=== PATIENT | female | born 1970 | race Caucasian/White ===

== ENCOUNTER 2017-04-05 09:39 | Emergency (ER) | payer BC ==
--- NOTE | 2017-04-05 11:40 | UC ---
Shoulder Pain HPI - HPI Summary HPI Summary: The patient comes in today for: 1. Left shoulder pain: Onset: Initially, 6 months ago, but worse over the last week. Palliative/provocative: Abduction makes it worse. Advil helps. Quality: Ache, soreness, sharp with activities. Region: Left shoulder. Severity: 3/10 at rest, with movement, it can go up to 10/10 Time: Constant. Associated symptoms: Event: She fell about 6 months ago. She was standing along a river[place]. The stones that she was on dislodged and she fell down the riverbank hitting her left shoulder on the stones and a tree. It healed "OK." She did not see anyone at this time for this. She states that the shoulder was never pain free from that point on. Certain activities like carrying things with the left arm ( picking up and abduction) made it worse. However, about 5 days ago, she noticed that the pain got worse. She was not able to brush her teeth last night. The pain is sharp. It is worse with abduction. Internal and external rotation makes it worse. * - History of Current Complaint Chief Complaint: UCUpperExtremity Stated Complaint: LEFT SHOULDER PAIN Time Seen by Provider: 04/05/17 11:13 Hx Obtained From: Patient Hx Last Menstrual Period: 03/14/17 - Allergies/Home Medications Allergies/Adverse Reactions: Allergies Allergy/AdvReac Type Severity Reaction Status Date / Time Amoxicillin Allergy Hives Verified 04/05/17 10:28 dairy products Allergy Intermediate Diarrhea Uncoded 04/05/17 10:27 Home Medications: Home Medications Netti Pot 1 unit INH DAILY PRN 04/05/17 [History] PMH/Surg Hx/FS Hx/Imm Hx Previously Healthy: No - Allergies, Endocrine History Of: Denies: Diabetes, Thyroid Disease, Hyperthyroidism, Hypothyroidism, Dyslipidemia Cardiovascular History Of: Reports: Cardiac Disorders - arrythmia no meds Denies: Hypertension, Pacemaker/ICD, Myocardial Infarction, Congestive Heart Failure, Atrial Fibrillation, Deep Vein Thrombosis, Bleeding Disorders Respiratory History Of: Reports: Asthma - only in summer/ allergies Denies: COPD, Bronchitis, Pneumonia, Pulmonary Embolism GI/ History Of: Denies: Gastroesophageal Reflux, Ulcer, Gastrointestinal Bleed, Gall Bladder Disease, Kidney Stones, Diverticulitis, Renal Disease, Urosepsis Neurological History Of: Denies: TIA, CVA, Dementia, Seizures, Migraine Psychological History Of: Denies: Anxiety, Depression, Bipolar Disorder, Schizophrenia, Post Traumatic Stress Disorder Cancer History Of: Denies: Lung Cancer, Colorectal Cancer, Breast Cancer, Prostate Cancer, Cervical Cancer Other History Of: Negative For: HIV, Hepatitis B, Hepatitis C, Anticoagulant Therapy - Surgical History Surgical History: Yes Surgery Procedure, Year, and Place: IVF to extract egg 2009 - Family History Known Family History: Positive: Cardiac Disease Negative: Hypertension - Social History Occupation: Employed Full-time Alcohol Use: Occasionally Substance Use Type: None Smoking Status (MU): Never Smoked Tobacco Review of Systems Constitutional: Negative Skin: Negative Eyes: Negative ENT: Negative Respiratory: Negative Cardiovascular: Negative Gastrointestinal: Negative Genitourinary: Negative Musculoskeletal: Arthralgia All Other Systems Reviewed And Are Negative: Yes Physical Exam Triage Information Reviewed: Yes Appearance: Well-Appearing, No Pain Distress - At rest., Well-Nourished Vital Signs: Initial Vital Signs Temp 98.5 F 04/05/17 10:17 Pulse 67 04/05/17 10:17 Resp 20 04/05/17 10:17 BP 147/81 04/05/17 10:17 Vital Signs Reviewed: Yes Eyes: Positive: Conjunctiva Clear. Negative: Discharge ENT: Positive: Hearing grossly normal. Negative: Pharyngeal erythema, Nasal congestion, Nasal drainage, TM bulging, TM dull, TM red, Tonsillar swelling, Tonsillar exudate Dental: Negative: Gross Decay/Caries @, Dental Fracture @ Neck: Positive: Supple, Nontender, No Lymphadenopathy. Negative: Nuchal Rigidity Respiratory: Positive: Chest non-tender, Lungs clear, No respiratory distress, No accessory muscle use. Negative: Crackles, Wheezing Cardiovascular: Positive: RRR, No Murmur Abdomen Description: Positive: Nontender, No Organomegaly, Soft. Negative: Distended, Guarding Musculoskeletal: Positive: Strength Intact, Other: - She has decreased abduction in the anterior and lateral plane. There is no marked tenderness to palpation. There is slight tenderness to palpation of the posterior capsule. She had no pain with resisting my external rotation. However, she had pain with resisting my internal rotation. Neurological: Positive: Alert, Muscle Tone Normal Psychological: Positive: Age Appropriate Behavior, Consolable Skin: Negative: rashes, breakdown Diagnostics - Radiology No standard instances Xray Interpretation: No Acute Changes Radiology Interpretation Completed By: Radiologist Shoulder Course/Dx - Course Course Of Treatment: Patient was told that the x-ray was normal suggesting soft tissue injury. I suspected that she may have a rotator cuff injury/ supraspinatus tendonitis. My recommendation was to try NSAIDS and see orthopedics 1-2 weeks later. - Differential Dx/Diagnosis Differential Diagnosis/HQI/PQRI: Arthritis, Rotator Cuff Injury Provider Diagnoses: Left shoulder pain, tendonitis Discharge - Discharge Plan Condition: Stable Disposition: HOME Patient Education Materials: Shoulder Sprain (ED), Rotator Cuff Injury (ED), Rotator Cuff Tendinitis (ED) Referrals: Jayleen Oshea NP [Primary Care Provider] - Vincenzo Stinson MD [Medical Doctor] - 1 Week (Please contact Dr. Stinson's office or the office of your family orthopedic surgeon to be seen in 1-2 weeks. If you get worse while on treatment, please be seen sooner.) Additional Instructions: Avoid activities which cause your shoulder pain.
--- NOTE | 2017-04-05 11:44 | RAD ---
HISTORY: Left shoulder pain after fall COMPARISONS: None VIEWS: 4, Frontal internal rotation, external rotation, outlet, and axillary views of the left shoulder FINDINGS: BONE DENSITY: Normal. BONES: There is no displaced fracture. JOINTS: There is no arthropathy. ALIGNMENT: There is no dislocation. SOFT TISSUES: Unremarkable. OTHER FINDINGS: None. IMPRESSION: NO ACUTE OSSEOUS INJURY. IF SYMPTOMS PERSIST, RECOMMEND REPEAT IMAGING.
[2017-04-05 12:18] VITALS: BP 132/81
== END 2017-04-05 12:33 | disposition home or self-care (01) ==
LOC: UCCORT 09:39
DX: M75.22 Bicipital tendinitis, left shoulder (principal)
CPT/HCPCS: 99212; G0463

== ENCOUNTER 2017-11-26 13:43 | Emergency (ER) | payer BC ==
[2017-11-26 14:00] VITALS: BP 159/92
--- NOTE | 2017-11-26 15:05 | UC ---
Mane Okeefe Tecjoon, scribed for Miguel Ortiz MD on 11/26/17 at 1504 . Epistaxis Nasal HPI - HPI Summary HPI Summary: This patient is a 47 year old female presenting to [facility] with a chief complaint of sinus infection since several weeks ago. The pain is described as throbbing. The pain is rated 10/10 in severity. Symptoms aggravated by nothing. Symptoms alleviated by nothing. 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 Patient additionally reports fever, ear infection, toothache, earache, left-sided face pain. Took doxycycline in September for Sinus infection , which didnt fully clear sx. - History of Current Complaint Chief Complaint: UCHeadache Stated Complaint: sinus CONGESTION, AND EAR ACHE Time Seen by Provider: 11/26/17 14:48 Hx Obtained From: Patient Hx Last Menstrual Period: 11/08/2017 Onset/Duration: Lasting Weeks, Still Present Timing: Constant Severity Currently: Severe Pain Intensity: 10 - throbbing Pain Scale Used: 0-10 Numeric Character: Heavy Aggravating Factor(s): Nothing Alleviating Factor(s): Nothing Associated Signs And Symptoms: Positive: Sinus Pain - Allergies/Home Medications Allergies/Adverse Reactions: Allergies Allergy/AdvReac Type Severity Reaction Status Date / Time Amoxicillin Allergy Hives Verified 09/17/17 11:42 dairy products Allergy Intermediate Diarrhea Uncoded 09/17/17 11:42 PMH/Surg Hx/FS Hx/Imm Hx - Additional Past Medical History Additional PMH: frequent sinus infections Previously Healthy: No Cardiovascular History: Hypertension Other History Of: Negative For: HIV, Hepatitis B, Hepatitis C, Anticoagulant Therapy - Surgical History Surgical History: Yes Surgery Procedure, Year, and Place: IVF to extract egg 2009 - Family History Known Family History: Positive: Cardiac Disease Negative: Hypertension - Social History Alcohol Use: Occasionally Substance Use Type: None Smoking Status (MU): Never Smoked Tobacco - Immunization History Most Recent Influenza Vaccination: none Review of Systems Constitutional: Fever ENT: Dental Pain, Ear Ache, Sinus Pain/Tenderness, Other - left sided face pain All Other Systems Reviewed And Are Negative: Yes Physical Exam Triage Information Reviewed: Yes Vital Signs: Initial Vital Signs Temp 98.7 F 11/26/17 13:52 Pulse 70 11/26/17 13:52 Resp 16 11/26/17 13:52 BP 159/92 11/26/17 13:52 Pulse Ox 98 11/26/17 13:52 - Additional Comments General: well-appearing, mild/moderate pain distress Skin: warm, color reflects adequate perfusion, dry Head: normal Eyes: EOMI, [place] ENT: Tender over left maxillary sinus. Posterior pharyx with mild erythema. Neck: supple, nontender Respiratory: CTA, breath sounds present Cardiovascular: RRR Abdomen: soft, nontender Bowel: present Musculoskeletal: normal, strength/ROM intact Neurological: normal, sensory/motor intact, A&O x3 Psychological: affect/mood appropriate Epistaxis Nasal Course/Dx - Course Course Of Treatment: BP noted and advised to follow up with PCP. Medications reviewed. Allergies noted. - Differential Dx/Diagnosis Provider Diagnoses: SINUSITIS Discharge - Discharge Plan Condition: Stable Disposition: HOME Prescriptions: Clindamycin Cap(NF) [Clindamycin Cap 300 mg Cap(NF)] 300 mg PO Q6H #40 cap HYDROcodone/ACETAMIN 5-325 MG* [[place] 5-325 TAB*] 1 tab PO Q4H PRN #20 tab MDD 6 PRN Reason: Pain Patient Education Materials: Sinusitis (ED) Referrals: Sola Mendoza FIBROUS WALLBOARD INSPECTOR [Primary Care Provider] - Additional Instructions: Your blood pressure was elevated during todays visit; please follow up with your primary care provider within a week for further evaluation. The documentation as recorded by the Mane jin Tecjoon accurately reflects the service I personally performed and the decisions made by me, Miguel Ortiz MD.
== END 2017-11-26 15:11 | disposition home or self-care (01) ==
LOC: UCEAST 13:43
DX: J32.9 Chronic sinusitis, unspecified (principal); H92.09 Otalgia, unspecified ear; K08.89 Other specified disorders of teeth and supporting structures; I10 Essential (primary) hypertension; Z88.8 Allergy status to other drugs, medicaments and biological substances; Z91.011 Allergy to milk products
CPT/HCPCS: 99212; G0463

== ENCOUNTER 2017-12-18 08:23 | Emergency (ER) | payer BC ==
[2017-12-18 08:59] VITALS: BP 142/87
--- NOTE | 2017-12-18 09:16 | UC ---
UC Dental HPI - HPI Summary HPI Summary: broke molar on lower left jaw line, now has abcess, has dentist appointment in 3 days, tylenol effective for pain. - History of Current Complaint Chief Complaint: UCDentalProblem Stated Complaint: DENTAL PAIN Time Seen by Provider: 12/18/17 08:50 Hx Obtained From: Patient Hx Last Menstrual Period: 12/07/17 ?: No Onset/Duration: Sudden Onset, Lasting Days Severity: Moderate Pain Intensity: 6 Related History: Previous Dental Care on Same Tooth - Allergies/Home Medications Allergies/Adverse Reactions: Allergies Allergy/AdvReac Type Severity Reaction Status Date / Time amoxicillin Allergy Hives Verified 12/18/17 08:54 lactose AdvReac Vomiting Verified 12/18/17 08:54 Home Medications: Home Medications Acetaminophen [Acetaminophen ER] 650 mg PO Q8H PRN 12/18/17 [History Confirmed 12/18/17] LoraTADine TAB(NF) [Claritin 10 MG TAB(NF)] 10 mg PO DAILY 12/18/17 [History Confirmed 12/18/17] PMH/Surg Hx/FS Hx/Imm Hx Previously Healthy: Yes Other History Of: Negative For: HIV, Hepatitis B, Hepatitis C, Anticoagulant Therapy - Surgical History Surgical History: Yes Surgery Procedure, Year, and Place: IVF to extract egg 2009 - Family History Known Family History: Positive: Unknown, Cardiac Disease Negative: Hypertension - Social History Alcohol Use: Occasionally Substance Use Type: None Smoking Status (MU): Never Smoked Tobacco - Immunization History Most Recent Influenza Vaccination: none Review of Systems Constitutional: Negative Skin: Negative Eyes: Negative ENT: Dental Pain Respiratory: Negative Cardiovascular: Negative Gastrointestinal: Negative Genitourinary: Negative Motor: Negative Neurovascular: Negative Musculoskeletal: Negative Neurological: Negative Psychological: Negative Is Patient Immunocompromised?: No All Other Systems Reviewed And Are Negative: Yes Physical Exam Triage Information Reviewed: Yes Appearance: Well-Appearing, Well-Nourished, Pain Distress Vital Signs: Initial Vital Signs Temp 98.2 F 12/18/17 08:51 Pulse 72 12/18/17 08:51 Resp 16 12/18/17 08:51 BP 142/87 12/18/17 08:51 Pulse Ox 100 12/18/17 08:51 Vital Signs Reviewed: Yes Eye Exam: Normal ENT: Positive: Pharynx normal, TMs normal Dental Exam: Normal Dental: Positive: Gross Decay/Caries @, Dental Fracture @, Abscess @ - under affected tooth Neck exam: Normal Neck: Positive: Supple, Nontender, No Lymphadenopathy Respiratory Exam: Normal Respiratory: Positive: Chest non-tender, Lungs clear, Normal breath sounds Cardiovascular Exam: Normal Cardiovascular: Positive: RRR, No Murmur, Pulses Normal Abdominal Exam: Normal Abdomen Description: Positive: Nontender, No Organomegaly, Soft Bowel Sounds: Positive: Present Musculoskeletal Exam: Normal Musculoskeletal: Positive: Strength Intact, ROM Intact, No Edema Neurological Exam: Normal Neurological: Positive: Alert, Muscle Tone Normal Psychological Exam: Normal Skin Exam: Normal Dental Complaint Course/Dx - Course Course Of Treatment: hx obtained, exam performed ,meds reviewed, treated for abscess - Differential Dx/Diagnosis Differential Diagnosis/Dx: Dental Abscess, Dental Caries, Pharyngitis, TMJ Syndrome Provider Diagnoses: dental fracture and abscess Discharge - Discharge Plan Condition: Stable Disposition: HOME Prescriptions: Clindamycin Cap(NF) [Clindamycin Cap 300 mg Cap(NF)] 300 mg PO TID #21 cap Patient Education Materials: Dental Abscess (ED) Referrals: Sola Mendoza NP [Primary Care Provider] - Additional Instructions: 1. use the medication as prescribed. 2 continue with mouth rinses and tylenol for pain, 3. Follow up with the dentist.
== END 2017-12-18 09:21 | disposition home or self-care (01) ==
LOC: UCCORT 08:23
DX: S02.5XXA Fracture of tooth (traumatic), initial encounter for closed fracture (principal); K04.7 Periapical abscess without sinus; Z72.89 Other problems related to lifestyle
CPT/HCPCS: 99212; G0463

== ENCOUNTER 2018-02-05 14:29 | Emergency (ER) | payer BC | END 2018-02-05 15:57 | disposition left against medical advice (07) | LOC: UCEAST 14:29 | DX: J34.9 Unspecified disorder of nose and nasal sinuses (principal); Z53.21 Procedure and treatment not carried out due to patient leaving prior to being seen by health care provider ==

== ENCOUNTER 2018-02-10 09:34 | Emergency (ER) | payer BC ==
[2018-02-10 10:51] VITALS: BP 127/74
--- NOTE | 2018-02-10 11:49 | RAD ---
HISTORY: Right foot pain and injury COMPARISONS: None VIEWS: 3, Frontal, lateral, and oblique views of the right foot FINDINGS: BONE DENSITY: Normal. BONES: There is a nondisplaced fracture of the proximal fifth metatarsal, approximately 2 cm from the articular surface. . JOINTS: There is no arthropathy. ALIGNMENT: There is no dislocation. SOFT TISSUES: Unremarkable. OTHER FINDINGS: None. IMPRESSION: NONDISPLACED FRACTURE OF THE PROXIMAL FIFTH METATARSAL
[2018-02-10] MEDS ORDERED: Ibuprofen TAB* 400 MG PO ONE (11:56)
--- NOTE | 2018-02-10 12:02 | UC ---
Lower Extremity/Ankle HPI - HPI Summary HPI Summary: 47-year-old presents to urgent care with complaints of right foot pain after an injury that she sustained around 9:30 AM today. States she was running when she stepped into a hole. States pain is worsened with weightbearing or walking. Pain is on the medial side of foot. No ankle or lower leg pain. 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 Also complains her sinus infection that has not been improving after 5 days of doxycycline. Patient has chronic sinusitis due to anatomy and she is with eustachian tube. Has also been using over-the- counter measures. No other complaints at this time. No past Medical history. Not taking any medication for pain. - History of Current Complaint Chief Complaint: UCLowerExtremity Stated Complaint: RT FOOT INJURY Time Seen by Provider: 02/10/18 11:04 Hx Obtained From: Patient Hx Last Menstrual Period: 01/18/18 Onset/Duration: Sudden Onset Severity Initially: Mild Severity Currently: Mild Pain Intensity: 1 Pain Scale Used: 0-10 Numeric - Worse when bearing weight Aggravating Factor(s): Standing, Ambulation Alleviating Factor(s): Rest Able to Bear Weight: Yes - however increased pain Feet (Multiple View): 1 - Pain - Allergies/Home Medications Allergies/Adverse Reactions: Allergies Allergy/AdvReac Type Severity Reaction Status Date / Time amoxicillin Allergy Hives Verified 02/10/18 10:51 lactose AdvReac Vomiting Verified 02/10/18 10:51 Home Medications: Home Medications Advil Sinus 1 tab PO Q4H PRN 02/10/18 [History] DOXYcycline CAP(*) [DOXYcycline 100MG CAP(*)] 100 mg PO BID 02/10/18 [History Confirmed 02/10/18] PMH/Surg Hx/FS Hx/Imm Hx - Additional Past Medical History Additional PMH: Denies past medical history no high blood pressure or diabetes Other History Of: Negative For: HIV, Hepatitis B, Hepatitis C, Anticoagulant Therapy - Surgical History Surgical History: Yes Surgery Procedure, Year, and Place: IVF to extract egg 2009 - Family History Known Family History: Positive: Unknown, Cardiac Disease Negative: Hypertension - Social History Alcohol Use: Occasionally Substance Use Type: None Smoking Status (MU): Never Smoked Tobacco - Immunization History Most Recent Influenza Vaccination: none Review of Systems Constitutional: Negative Respiratory: Negative Cardiovascular: Negative Musculoskeletal: Arthralgia, Decreased ROM - Right foot, Myalgia Neurological: Negative All Other Systems Reviewed And Are Negative: Yes Physical Exam Triage Information Reviewed: Yes Appearance: Well-Appearing, Well-Nourished, Pain Distress - Mild, worse with walking and bearing weight Vital Signs: Initial Vital Signs Temp 98.5 F 02/10/18 10:40 Pulse 74 02/10/18 10:40 Resp 18 02/10/18 10:40 BP 127/74 02/10/18 10:40 Pulse Ox 100 02/10/18 10:40 Vital Signs Reviewed: Yes Neck: Positive: Supple Respiratory: Positive: Chest non-tender, Lungs clear, Normal breath sounds, No respiratory distress Cardiovascular: Positive: RRR, No Murmur, Pulses Normal - 2+ pedal, Brisk Capillary Refill Musculoskeletal: Positive: No Edema, Strength Limited @ - Right foot, ROM Limited @ - With right toes due to pain, Other: - Tender to palpation over fifth metatarsal of right foot, no ecchymosis, edema, erythema, obvious deformity noted Neurological Exam: Normal Neurological: Positive: Alert Psychological Exam: Normal Skin Exam: Normal Diagnostics - Radiology right foot Xray Interpretation: Positive (See Comments) - NONDISPLACED FRACTURE OF THE PROXIMAL FIFTH METATARSAL Radiology Interpretation Completed By: Radiologist Lower Extremity Course/Dx - Course Course Of Treatment: Given ibuprofen for the urgent care. X-ray obtained and showed a nondisplaced fracture of fifth metatarsal. Continue ibuprofen along with rice at home. Applied a postop shoe and crutches. Do not bear weight until seen by orthopedics. Switched doxycycline to clindamycin for sinus infection. Continue Flonase Mucinex saline rinses and hot showers. Aware worsening signs and symptoms to watch out for. Follow-up with PCP to ensure improvement as well as Ortho 4 days for further treatment and evaluation. All questions answered and no other concerns at this time. - Differential Dx/Diagnosis Differential Diagnosis/HQI/PQRI: Contusion, Dislocation, Fracture (Closed), Sprain, Strain, Other - Sinusitis Provider Diagnoses: right fifth metatarsal fracture, sinusitis Discharge - Sign-Out/Discharge Documenting (check all that apply): Discharge - Discharge Plan Condition: Good Disposition: HOME Patient Education Materials: Foot Fracture in Adults (ED), Sinusitis (ED), Warm Compress or Soak (ED) Referrals: Sola Mendoza WHARF TENDER [Primary Care Provider] - Additional Instructions: For foot fracture: Ibuprofen 600mg every 6 hours as needed for pain, take with food. Rest, ice and elevate. Wear foot brace and use crutches, do not bear weight. Follow up with Orthopedics, call to make an appointment for further evaluation and treatment. For the sinusitis: Discontinue doxycycline, take 7 day course of clindamycin. Recommend taking probiotic pill in between doses. Discontinue afrin and use flonase nasal spray once at bedtime. Recommend mucinex, take one pill in the morning for the next 7 days. melatonin OR z-quil for sleep-aid. Continue nazanin pot and normal saline. Salt water swishes, hot showers, humidifier at bedtime if available. Any new or worsening symptoms please seek medical attention promptly. Follow up with PCP for recheck. - Billing Disposition and Condition Condition: GOOD Disposition: HOME
== END 2018-02-10 12:27 | disposition home or self-care (01) ==
LOC: UCCORT 09:34
DX: S92.354A Nondisplaced fracture of fifth metatarsal bone, right foot, initial encounter for closed fracture (principal); W18.42XA Slipping, tripping and stumbling without falling due to stepping into hole or opening, initial encounter; Y93.02 Activity, running; Y92.9 Unspecified place or not applicable; J32.9 Chronic sinusitis, unspecified; Z88.3 Allergy status to other anti-infective agents
CPT/HCPCS: 99213; A9270-GY; G0463

== ENCOUNTER 2018-05-12 11:45 | Emergency (ER) | payer BC ==
--- NOTE | 2018-05-12 12:36 | UC ---
Throat Pain/Nasal Franky HPI - HPI Summary HPI Summary: 47 year old with sinus complaint. SINUS CONGESTION, PRESSURE AND PAIN IN JAW/ TEETH LEFT SIDE X2 WEEKS URINARY SYMPTOMS OF BURNING ON URINATION, FREQUENCY, URGENCY AND LOW BACK PAIN X3-4 DAYS. She has had recurrent sinusitis and goes to ENT and feels that she has one right now and states that only clinda or cipro will work for the sinus infections. [ End ] - History of Current Complaint Stated Complaint: SINUS COMPLAINT, URINARY Time Seen by Provider: 05/12/18 12:34 Hx Obtained From: Patient Hx Last Menstrual Period: 01/18/18 Onset/Duration: Gradual Onset Cough: Productive - Allergies/Home Medications Allergies/Adverse Reactions: Allergies Allergy/AdvReac Type Severity Reaction Status Date / Time amoxicillin Allergy Hives Verified 02/10/18 10:51 lactose AdvReac Vomiting Verified 02/10/18 10:51 Home Medications: Home Medications Ibuprofen 600 mg PO Q8H 05/12/18 [History Confirmed 05/12/18] guaiFENesin [Mucinex] 600 mg PO DAILY 05/12/18 [History Confirmed 05/12/18] PMH/Surg Hx/FS Hx/Imm Hx Previously Healthy: Yes Other History Of: Negative For: HIV, Hepatitis B, Hepatitis C, Anticoagulant Therapy - Surgical History Surgical History: Yes Surgery Procedure, Year, and Place: IVF to extract egg 2009 - Family History Known Family History: Positive: Unknown, Cardiac Disease Negative: Hypertension - Social History Occupation: Employed Full-time Lives: With Family Alcohol Use: Occasionally Substance Use Type: None Smoking Status (MU): Never Smoked Tobacco - Immunization History Most Recent Influenza Vaccination: none Review of Systems Constitutional: Fatigue ENT: Sore Throat, Ear Ache, Nasal Discharge, Sinus Congestion, Sinus Pain/ Tenderness Respiratory: Cough Genitourinary: Dysuria, Frequency, Urgency Is Patient Immunocompromised?: No All Other Systems Reviewed And Are Negative: Yes Physical Exam Triage Information Reviewed: Yes Appearance: Well-Appearing, No Pain Distress, Well-Nourished Vital Signs Reviewed: Yes Eye Exam: Normal ENT Exam: Normal ENT: Positive: Nasal congestion, Sinus tenderness Dental Exam: Normal Neck exam: Normal Neck: Positive: 1 Respiratory Exam: Normal Cardiovascular Exam: Normal Abdomen Description: Positive: Nontender, Soft. Negative: CVA Tenderness (R), CVA Tenderness (L), Distended, Guarding Musculoskeletal Exam: Normal Neurological Exam: Normal Psychological Exam: Normal Skin Exam: Normal Throat Pain/Nasal Course/Dx - Course Course Of Treatment: treat for sinusitis with concurrent UTI with cipro as per pt Cipro works for sinuses and should also cover UTI . She is aware of risks of this med and aware of SE . she is requesting 10 days of 500 mg at this time - Differential Dx/Diagnosis Differential Diagnosis/HQI/PQRI: Peritonsillar Abscess, Pharyngitis, Sinusitis, URI Provider Diagnoses: Sinusitis. UTI. Hematuria Discharge - Sign-Out/Discharge Documenting (check all that apply): Discharge/Admit/Transfer - Discharge Plan Condition: Good Disposition: HOME Prescriptions: Ciprofloxacin TAB* [Cipro 500 MG TAB*] 500 mg PO BID #20 tab Patient Education Materials: Urinary Tract Infection in Women (DC), Sinusitis ( ED), Hematuria (ED) Referrals: Sola Mendoza, MDM SR [Primary Care Provider] - 4 Days Additional Instructions: Please follow up with recheck of your urine to ensure no infection or blood in the urine in 1-2 weeks with your PCP - Billing Disposition and Condition Condition: GOOD Disposition: Home
--- OUTSIDE RECORDS SUMMARY | 2018-05-12 12:39 | XMS REPORT ---
:1970 External Reference #:[id number] Author Organization [facility] Address [address] [place] [address] Phone [phone] Care Team Providers Name Role Phone Sola Mendoza NP Primary Care Physician Unavailable Payers Type Date Identification Numbers Payment Provider Subscriber Commercial Policy Number: [id number] [employer] Nessa Ignacio PayID: [id number] [address] [address] [place] [address] Problems Date Description Provider Status Onset: 02/15/2018 Closed fracture of metatarsal bone Fawad Victoria MD Active Family History Date Family Member(s) Problem(s) Comments General Diabetes Social History Type Date Description Comments Marital Status Single Lives With Roommate Occupation Currently Working ETOH Use Drinks 5 Alcoholic Beverages Per Week Smoking Patient has never smoked Exercise Type/Frequency Exercises regularly Allergies, Adverse Reactions, Alerts Date Description Reaction Status Severity Comments 02/15/2018 Amoxicillin active 02/15/2018 Lactose (Allergy) active Medications Medication Date Status Form Strength Qnty SIG Indications Ordering Provider Knee Scooter Active 1units 3 months Fawad Victoria MD Ibuprofen Active Tablets 800mg 90tabs by mouth Caio 014 three Doe, times a M.D. day as needed Teresita-D 24 Active Unknown Hour 000 Doxycycline Active 100mg Unknown Hyclate 000 Vital Signs Date Vital Result Comment 04/26/2018 Height 62 inches 5'2" Weight 168.00 lb Heart Rate 82 /min Respiratory Rate 18 /min Pain Level 0 BMI (Body Mass Index) 30.7 kg/m2 03/29/2018 Height 62 inches 5'2" Weight 165.00 lb Heart Rate 72 /min Respiratory Rate 17 /min Pain Level 0 BMI (Body Mass Index) 30.2 kg/m2 02/15/2018 Height 62 inches 5'2" Weight 165.00 lb BP Systolic 124 mmHg BP Diastolic 82 mmHg Respiratory Rate 17 /min Body Temperature 97.4 F Pain Level 0 BMI (Body Mass Index) 30.2 kg/m2 08/31/2014 Height 62 inches 5'2" Heart Rate 75 /min BP Systolic 127 mmHg BP Diastolic 80 mmHg Results Description No Information Procedures Date CPT Code Description Status 08/31/2014 45587 Rad Exam; Foot Comp Completed 08/23/2013 99574 Holter Monitor Review (24 hr)dr review & interp only Completed Encounters Type Date Location Provider CPT E/M Dx Office Visit 04/26/2018 [facility] [address] S92.354A 10:00a [facility] Office Visit 03/29/2018 [place] [address] S92.354A 10:00a [facility] Office Visit 02/15/2018 [place] [address] [id number] 8:00a [facility] Office Visit 08/31/2014 [facility] [address] [id number] 2:00p [facility]Elaine Blake Plan of Care Future Appointment(s):07/27/2018 1:15 pm - Fawad [facility]04/26/2018 - Fawad Victoria [id number] Nondisp fx of fifth metatarsal bone, right foot, initNew Xrays:Foot Right 3+ VWSFollow up:Follow Up : 3 months
[2018-05-12 12:50] VITALS: BP 125/90
--- NOTE | 2018-05-15 07:10 | UC ---
- Progress Note Progress Note: + E. coli Pt on cipro + sensitive no change 05/15/2018 7:10 Discharge - Sign-Out/Discharge Documenting (check all that apply): Post-Discharge Follow Up - Discharge Plan Condition: Good Disposition: HOME Prescriptions: Ciprofloxacin TAB* [Cipro 500 MG TAB*] 500 mg PO BID #20 tab Patient Education Materials: Urinary Tract Infection in Women (DC), Sinusitis ( ED), Hematuria (ED) Referrals: Sola Mendoza [employer] [Primary Care Provider] - 4 Days Additional Instructions: Please follow up with recheck of your urine to ensure no infection or blood in the urine in 1-2 weeks with your PCP - Billing Disposition and Condition Condition: GOOD Disposition: Home
== END 2018-05-12 13:16 | disposition home or self-care (01) ==
LOC: UCCORT 11:45
DX: J32.9 Chronic sinusitis, unspecified (principal); N39.0 Urinary tract infection, site not specified; B96.20 Unspecified Escherichia coli [E. coli] as the cause of diseases classified elsewhere; R31.9 Hematuria, unspecified; Z88.0 Allergy status to penicillin
CPT/HCPCS: 81003; 87077; 87086; 87186; 99212; G0463

== ENCOUNTER 2018-06-27 14:48 | Emergency (ER) | payer BC ==
[2018-06-27 15:08] VITALS: BP 130/76
--- NOTE | 2018-06-27 15:11 | UC ---
Skin Complaint HPI - HPI Summary HPI Summary: The pt is a 48 y/o female presenting to for staple and suture removal s/p a dog attack 8 days ago. She was bitten while breaking up a dog fight by a dog she had adopted from the [facility] . She was given Amoxicillin which upset her stomach and the prescription will last for the next two days. She reports taking Augmentin to her relief. She is concerned about a slow-healing wound on her R palm and pain at night. The pain is alleviated by applying ice and aggravated by impact. The provider removed 7 stitches and 2 daniel from the RE and and 2 daniel from the LE during today's visit. This is scribe Brittney Hernandez documenting for attending Dr. Miguel Ortiz. I, Dr. Miguel Ortiz personally performed the services described in this documentation as scribed in my presence and it is both accurate and complete. - History of Current Complaint Time Seen by Provider: 06/27/18 15:02 Stated Complaint: STAPLE REMOVAL Hx Obtained From: Patient Hx Last Menstrual Period: 01/18/18 Onset/Duration: Lasting Days - 8 days ago, Still Present Skin Exposure Onset/Duration: Days Ago Location: Hand (Right), Hand (Left) Aggravating Factor(s): Other - Impact Alleviating Factor(s): Other - Appllication of ice Related History: Other: - Dog Attack - Allergy/Home Medications Allergies/Adverse Reactions: Allergies Allergy/AdvReac Type Severity Reaction Status Date / Time amoxicillin Allergy Hives Verified 06/27/18 15:09 lactose AdvReac Vomiting Verified 06/27/18 15:09 Home Medications: Home Medications Amoxicillin/Potassium Clav [Amox-Clav 250-125 mg Tablet] 1 tab PO BID 06/27/18 [ History Confirmed 06/27/18] Review of Systems Constitutional: Negative - Fever Skin: Other - Positive:Bilateral lacerations with sutures and daniel Gastrointestinal: Other - Positive: Stomach upset due to Amoxcillin Musculoskeletal: Other: - Positive: Bilateral UE pain All Other Systems Reviewed And Are Negative: Yes PMH/Surg Hx/FS Hx/Imm Hx Previously Healthy: No - No known PMHx of HTN or AL Endocrine History: Diabetes - Currently prediabetic Cardiovascular History: Cardiac Disease - Positive: Arythmia (no meds) Respiratory History: Asthma Other History Of: Negative For: HIV, Hepatitis B, Hepatitis C, Anticoagulant Therapy - Surgical History Surgical History: Yes Surgery Procedure, Year, and Place: IVF to extract egg 2009 - Family History Known Family History: Positive: Cardiac Disease Negative: Hypertension - Social History Occupation: Employed Full-time Lives: Alone Alcohol Use: Occasionally Substance Use Type: None Smoking Status (MU): Never Smoked Tobacco - Immunization History Most Recent Influenza Vaccination: none Physical Exam - Summary Physical Exam Summary: General: well-appearing, no pain distress Skin: warm, color reflects adequate perfusion, dry; Bilateral lacerations on the UE ; Lacerations on the L forearm are healed with no drainage; R palm has a scab with no erythema or drainage; The edges of the R forearm lacerations are loosely approximated with no drainage, sterile gauzes were placed over those. 7 stitches and 2 daniel removed from the RE and and 2 daniel from the LE during the visit . Head: normal Eyes: EOMI, [place] ENT: normal Neck: supple, nontender Respiratory: CTA, breath sounds present Cardiovascular: RRR Abdomen: soft, nontender Bowel: present Musculoskeletal: normal, strength/ROM intact Neurological: sensory/motor intact, A&O x3 Psychological: affect/mood appropriate Triage Information Reviewed: Yes Vital Signs Reviewed: Yes Course/Dx - Course Course Of Treatment: Sutures and daniel removed. No sign of infection. Follow -up PMD. Recheck sooner if worse. - Diagnoses Provider Diagnoses: dog bite. staple and suture removal Discharge - Sign-Out/Discharge Documenting (check all that apply): Patient Departure - Discharge - Discharge Plan Condition: Stable Disposition: HOME Prescriptions: Amoxicillin/Clavulanate TAB* [Augmentin TAB 875*] 875 mg PO BID #20 tab Patient Education Materials: Animal Bite (ED), Staple Care (ED), Stitches Removal (ED) Referrals: Sola Mendoza NP [Primary Care Provider] - Additional Instructions: FOLLOW UP WITH YOUR DOCTOR IF NOT COMPLETELY IMPROVED. GET RECHECKED FOR ANY WORSENING OF YOUR CONDITION OR QUESTIONS OR CONCERNS. - Billing Disposition and Condition Condition: STABLE Disposition: Home
== END 2018-06-27 15:35 | disposition home or self-care (01) ==
LOC: UCEAST 14:48
DX: S51.812D Laceration without foreign body of left forearm, subsequent encounter (principal); S51.811D Laceration without foreign body of right forearm, subsequent encounter; W54.0XXD Bitten by dog, subsequent encounter; Z88.0 Allergy status to penicillin; Z82.49 Family history of ischemic heart disease and other diseases of the circulatory system
CPT/HCPCS: 99212; G0463

== ENCOUNTER 2018-10-21 09:30 | Emergency (ER) | payer BC ==
[2018-10-21 09:53] VITALS: BP 126/81
--- NOTE | 2018-10-21 10:15 | UC ---
Dental HPI - HPI Summary HPI Summary: dental pain x 2 days broken left lower back molar 2 days ago has been very painful 8 out of 10 , radiation to left jaw increase pain with cold and chewing also c/o sinus pain and pressure x 10 days nasal congestion , pnd , no fever, no chills - History of Current Complaint Chief Complaint: UCDentalProblem Stated Complaint: SINUS/DENTAL CONCERN Time Seen by Provider: 10/21/18 10:03 Hx Obtained From: Patient Hx Last Menstrual Period: 10/14/18 ?: No Onset/Duration: Sudden Onset, Lasting Days - 2, Still Present Severity: Severe Pain Intensity: 6 Aggravating Factor(s): Cold, Chewing Dental: 1 - broken tooth - Allergies/Home Medications Allergies/Adverse Reactions: Allergies Allergy/AdvReac Type Severity Reaction Status Date / Time amoxicillin Allergy Hives Verified 06/27/18 15:09 lactose AdvReac Vomiting Verified 06/27/18 15:09 Home Medications: Home Medications Acetaminophen [Acetaminophen Extra Strength] 500 mg PO Q4HR PRN 10/21/18 [ History Confirmed 10/21/18] Levocetirizine Dihydrochloride [Xyzal Allergy 24Hr] 5 mg PO QPM 10/21/18 [ History Confirmed 10/21/18] PMH/Surg Hx/FS Hx/Imm Hx Respiratory History: Asthma Other History Of: Negative For: HIV, Hepatitis B, Hepatitis C, Anticoagulant Therapy - Surgical History Surgical History: Yes Surgery Procedure, Year, and Place: IVF to extract egg 2009 - Family History Known Family History: Positive: Cardiac Disease Negative: Hypertension - Social History Alcohol Use: Occasionally Substance Use Type: None Smoking Status (MU): Never Smoked Tobacco - Immunization History Most Recent Influenza Vaccination: none Review of Systems All Other Systems Reviewed And Are Negative: Yes Constitutional: Positive: Negative Skin: Positive: Negative Eyes: Positive: Negative ENT: Positive: Nasal Discharge, Sinus Congestion, Sinus Pain/Tenderness Respiratory: Positive: Negative Cardiovascular: Positive: Negative Gastrointestinal: Positive: Negative Is Patient Immunocompromised?: No Physical Exam Triage Information Reviewed: Yes Appearance: Well-Appearing, No Pain Distress, Well-Nourished Vital Signs: Initial Vital Signs Temp 97.7 F 10/21/18 09:49 Pulse 76 10/21/18 09:49 Resp 12 10/21/18 09:49 BP 126/81 10/21/18 09:49 Pulse Ox 100 10/21/18 09:49 Vital Signs Reviewed: Yes Eye Exam: Normal Eyes: Positive: Conjunctiva Clear ENT: Positive: Normal ENT inspection, Hearing grossly normal, Pharynx normal, TMs normal, Sinus tenderness, Uvula midline. Negative: Tonsillar swelling, Tonsillar exudate Dental: Positive: Dental Fracture @ - "19 Neck: Positive: Supple, Nontender, No Lymphadenopathy Respiratory: Positive: Chest non-tender, Lungs clear, Normal breath sounds Cardiovascular: Positive: RRR, No Murmur, Pulses Normal Dental Complaint Course/Dx - Differential Dx/Diagnosis Provider Diagnosis: Fracture, tooth, Sinusitis Discharge - Sign-Out/Discharge Documenting (check all that apply): Patient Departure All imaging exams completed and their final reports reviewed: No Studies - Discharge Plan Condition: Stable Disposition: HOME Prescriptions: Amoxicillin/Clavulanate TAB* [Augmentin TAB 875*] 875 mg PO BID #20 tab HYDROcodone/ACETAMIN 5-325 MG* [Marlin 5-325 TAB*] 1 tab PO Q6H PRN #15 tab MDD 4 tabs PRN Reason: Pain Patient Education Materials: Sinusitis (ED), Toothache (ED) Referrals: Sola Mendoza [employer] [Primary Care Provider] - 7 Days - Billing Disposition and Condition Condition: STABLE Disposition: Home
== END 2018-10-21 10:19 | disposition home or self-care (01) ==
LOC: UCCORT 09:30
DX: S02.5XXA Fracture of tooth (traumatic), initial encounter for closed fracture (principal); X58.XXXA Exposure to other specified factors, initial encounter; Y92.9 Unspecified place or not applicable; J32.9 Chronic sinusitis, unspecified
CPT/HCPCS: 99212; G0463

== ENCOUNTER 2019-01-18 09:09 | Emergency (ER) | payer BC ==
[2019-01-18 10:32] VITALS: BP 137/79
--- NOTE | 2019-01-18 10:47 | UC ---
Throat Pain/Nasal Franky HPI - HPI Summary HPI Summary: Pt presents with c/o sinus pressure and pain that began a "few days ago". Pt has known hx of chronic sinusitis. - History of Current Complaint Chief Complaint: UCRespiratory Stated Complaint: SINUS COMPLAINT Time Seen by Provider: 01/18/19 10:38 Hx Obtained From: Patient Hx Last Menstrual Period: 01/07 ?: No Onset/Duration: Gradual Onset, Lasting Days, Still Present Severity: Moderate Pain Intensity: 4 Cough: None Associated Signs & Symptoms: Positive: Sinus Discomfort, Nasal Discharge - Epiglottits Risk Factors Epiglottis Risk Factors: Negative - Allergies/Home Medications Allergies/Adverse Reactions: Allergies Allergy/AdvReac Type Severity Reaction Status Date / Time amoxicillin Allergy Hives Verified 01/18/19 10:22 lactose AdvReac Vomiting Verified 01/18/19 10:22 Home Medications: Home Medications Ibuprofen TAB* [Motrin TAB* 400 MG] 400 mg PO Q4H PRN 01/18/19 [History Confirmed 01/18/19] PMH/Surg Hx/FS Hx/Imm Hx Previously Healthy: Yes Other History Of: Negative For: HIV, Hepatitis B, Hepatitis C, Anticoagulant Therapy - Surgical History Surgical History: Yes Surgery Procedure, Year, and Place: IVF to extract egg 2009 - Family History Known Family History: Positive: Cardiac Disease Negative: Hypertension - Social History Occupation: Employed Full-time Lives: With Family Alcohol Use: Occasionally Substance Use Type: None Smoking Status (MU): Never Smoked Tobacco Have You Smoked in the Last Year: No - Immunization History Most Recent Influenza Vaccination: none Review of Systems All Other Systems Reviewed And Are Negative: Yes Constitutional: Positive: Fever - subjective, Chills, Fatigue Skin: Positive: Negative Eyes: Positive: Negative ENT: Positive: Nasal Discharge, Sinus Congestion, Sinus Pain/Tenderness Respiratory: Positive: Negative Cardiovascular: Positive: Negative Gastrointestinal: Positive: Negative Genitourinary: Positive: Negative Motor: Positive: Negative Neurovascular: Positive: Negative Musculoskeletal: Positive: Negative Neurological: Positive: Headache Psychological: Positive: Negative Is Patient Immunocompromised?: No Physical Exam Triage Information Reviewed: Yes Appearance: Ill-Appearing Vital Signs: Initial Vital Signs Temp 98.3 F 01/18/19 10:27 Pulse 74 01/18/19 10:27 Resp 18 01/18/19 10:27 BP 137/79 01/18/19 10:27 Pulse Ox 100 03/06/19 10:27 Vital Signs Reviewed: Yes Eye Exam: Normal ENT Exam: Other ENT: Positive: Nasal congestion, Sinus tenderness Dental Exam: Normal Neck exam: Normal Respiratory Exam: Normal Cardiovascular Exam: Normal Musculoskeletal Exam: Normal Neurological Exam: Normal Psychological Exam: Normal Skin Exam: Normal Throat Pain/Nasal Course/Dx - Differential Dx/Diagnosis Differential Diagnosis/HQI/PQRI: Sinusitis, URI Provider Diagnosis: Sinusitis Discharge - Sign-Out/Discharge Documenting (check all that apply): Patient Departure All imaging exams completed and their final reports reviewed: No Studies - Discharge Plan Condition: Stable Disposition: HOME Prescriptions: DOXYcycline CAP(*) [DOXYcycline 100MG CAP(*)] 100 mg PO Q12H #20 cap Patient Education Materials: Sinusitis (ED) Referrals: Sola Mendoza [employer]OLD [facility]ER [Primary Care Provider] - If Needed - Billing Disposition and Condition Condition: STABLE Disposition: Home
== END 2019-01-18 10:57 | disposition home or self-care (01) ==
LOC: UCCORT 09:09
DX: J32.9 Chronic sinusitis, unspecified (principal); Z88.0 Allergy status to penicillin; Z91.011 Allergy to milk products
CPT/HCPCS: 99212; G0463

== ENCOUNTER 2019-01-29 10:09 | Emergency (ER) | payer BC ==
[2019-01-29 10:48] VITALS: BP 141/87
[2019-01-29] MEDS ORDERED: Tetan/Diph/Pertus SYR(Tdap)* 0.5 ML SYR(BOOSTRIX) use SYR IM ONE (10:57)
--- NOTE | 2019-01-29 11:02 | UC ---
Bite Injury/Animal HPI - HPI Summary HPI Summary: 48-year-old female presents with dog bite to her left forearm. States she is playing with her dog this morning when his teeth accidentally got caught in a small tear in her jacket, the dog panicked and bit down on her arm, and the patient attempted to pull her arm from the dog's mouth. Reports multiple puncture wounds to the anterior and posterior aspect of her left forearm including 2 deep lacerations. States she tried to simply dressed the wounds at home but the lacerations were continuing to bleed therefore she sought care here. Bleeding was controlled upon arrival. Denies any numbness tingling, loss of range of motion, or weakness of the arm. Tetanus status is unknown. - History of Current Complaint Chief Complaint: Chavez Stated Complaint: DOG BITE Time Seen by Provider: 01/29/19 10:52 Hx Obtained From: Patient Hx Last Menstrual Period: 01/07 Pain Intensity: 1 - Allergies/Home Medications Allergies/Adverse Reactions: Allergies Allergy/AdvReac Type Severity Reaction Status Date / Time amoxicillin Allergy Hives Verified 01/18/19 10:22 lactose AdvReac Vomiting Verified 01/18/19 10:22 PMH/Surg Hx/FS Hx/Imm Hx Previously Healthy: Yes - Denies significant PMH Other History Of: Negative For: HIV, Hepatitis B, Hepatitis C, Anticoagulant Therapy - Surgical History Surgical History: Yes Surgery Procedure, Year, and Place: IVF to extract egg 2009 - Family History Known Family History: Positive: Cardiac Disease - Social History Occupation: Employed Full-time Lives: Alone Alcohol Use: Occasionally Substance Use Type: None Smoking Status (MU): Never Smoked Tobacco Have You Smoked in the Last Year: No - Immunization History Most Recent Influenza Vaccination: none Review of Systems All Other Systems Reviewed And Are Negative: Yes Constitutional: Negative: Fever, Chills Skin: Positive: Other - See HPI Respiratory: Positive: Negative Cardiovascular: Positive: Negative Gastrointestinal: Positive: Negative Motor: Negative: Weakness Neurovascular: Negative: Decreased Sensation Musculoskeletal: Negative: Arthralgia, Decreased ROM Neurological: Positive: Negative Is Patient Immunocompromised?: No Physical Exam - Summary Physical Exam Summary: GENERAL APPEARANCE: Well developed, obese, alert and cooperative, and appears to be in no acute distress. CARDIAC: Normal S1 and S2. No S3, S4 or murmurs. Rhythm is regular. There is no peripheral edema, cyanosis or pallor. Extremities are warm and well perfused. Capillary refill is less than 2 seconds. Peripheral pulses intact. LUNGS: Clear to auscultation without rales, rhonchi, wheezing or diminished breath sounds. ABDOMEN: Positive bowel sounds. Soft, nondistended, nontender. No guarding or rebound. No masses or hepatosplenomegally. MUSKULOSKELETAL: ROM intact to all extremities. No joint erythema or tenderness. Normal muscular development. Normal gait. NEUROLOGICAL: Strength and sensation symmetric and intact throughout. SKIN: Multiple puncture wounds to the anterior and posterior left forearm with ecchymosis and mild edema of the surrounding tissues. Laceration #1: 1.2 x 1.2 L-shaped deep puncture wound that extends through the subdermal layer to the muscular layer to the proximal anterior left forearm. No FB or tendon damage noted. Laceration #2: 0.4 cm linear puncture wound that extends into the subcutaneous layer immediately distal to laceration #1. Laceration #3: 0.4 cm linear puncture wound that extends into the subcutaneous layer immediately distal to laceration #2. Laceration #4: M-shaped laceration 3 cm in total length that extends into the subcutaneous layer to the lateral aspect of the mid posterior left forearm. Laceration #5: 0.5 cm linear puncture wound midline to the mid posterior forearm that extends into the subcutaneous layer. Laceration #6: 0.3 cm linear puncture wound that extends into the subcutaneous layer approximately 0.5 cm proximal to laceration #5. There are 4 superficial linear puncture wounds to the posterior left forearm ranging from 0.3-0.4 cm that do not require repair, 1 immediately proximal to laceration #6 and 3 medial to laceration #6. Triage Information Reviewed: Yes Vital Signs: Initial Vital Signs Temp 98.3 F 01/29/19 10:42 Pulse 87 01/29/19 10:42 Resp 16 01/29/19 10:42 BP 141/87 01/29/19 10:42 Pulse Ox 100 01/29/19 10:42 Vital Signs Reviewed: Yes Procedures - Procedure Summary Procedure Summary: Procedure note: Laceration repair multiple puncture wounds to left forearm Informed consent was obtained before procedure started and the appropriate timeout was taken. The wounds were irrigated prior to laceration repair by the RN. Local anesthesia was achieved using a total of 8 ml of lidocaine 2% with epinephrine. The wounds were then explored and copiously irrigated with an additional 500 ml of sterile saline and chlorhexadine solution. Attention was first given to laceration #1. Adipose tissure was sharply excised from the margins of the wound. A single buried interrupted suture suture was placed in the subcutaneous layer using 3-0 Polysorb to bring the dermal layers into good alignment. A total of 4 interrupted sutures using 4-0 Ethilon were then used to close the dermal layer. Attention was then given to lacerations #2 and #3. A single interrupted suture using a 4-0 Ethilon was used to close each laceration. Attention was then turned to laceration #4. Adipose tissue was sharply excised from the wound then a total of 4 interrupted sutures using 4-0 Ethilon were placed to close the dermal layer. Attention was then given to laceration #5. Adipose tissue was sharply excised from the wound and single interrupted suture using 4-0 Ethilon was used to close the wound. Finally a single interrupted suture using 4-0 Ethilon was used to close laceration #6. Estimated blood loss was minimal. A bulky gauze dressing was applied then wrapped in MERCEDES bandage by the RN. Anticipatory guidance, as well as standard post-procedure care was discussed with patient. Return precautions are given. The patient tolerated the procedure well without complications. Patient is to return in 3 days for a wound check and then in 14 days for suture removal and evaluation of the laceration as long as there is no complication. Diagnostics - Radiology No standard instances Radiology Interpretation Completed By: Radiologist Summary of Radiographic Findings: Order Information: FOREARM LEFT 2 VWS. Accession Number: [id number]. CPT: 99467. HISTORY: r/o FB, dog bite . COMPARISONS: None relevant available at the time of dictation. VIEWS: 2, Frontal and lateral views of the left forearm. FINDINGS: BONE DENSITY: Normal. BONES: There is no displaced fracture. JOINTS: There is no arthropathy. ALIGNMENT: There is no dislocation. SOFT TISSUES: There is soft tissue swelling and irregularity of the ulnar aspect of the proximal forearm. OTHER FINDINGS: None. IMPRESSION: SOFT TISSUE SWELLING. NO ACUTE OSSEOUS INJURY. IF SYMPTOMS PERSIST, RECOMMEND REPEAT IMAGING. Bite Injury Course/Dx - Course Course Of Treatment: 48-year-old female presents with dog bite to her left forearm. States she is playing with her dog this morning when his teeth accidentally got caught in a small tear in her jacket, the dog panicked and bit down on her arm, and the patient attempted to pull her arm from the dog's mouth. Reports multiple puncture wounds to the anterior and posterior aspect of her left forearm including 2 deep lacerations. States she tried to simply dressed the wounds at home but the lacerations were continuing to bleed therefore she sought care here. Bleeding was controlled upon arrival. Denies any numbness tingling, loss of range of motion, or weakness of the arm. Tetanus status is unknown. Exam reveals an adult female in no acute distress with multiple puncture wounds to her anterior and posterior forearm including a deep L-shaped laceration that extends through the subcutaneous layer to the muscular layer to her anterior forearm and an M-shaped laceration that extends into the subcutaneous layer on the medial aspect of her posterior forearm. An x-ray was obtained to rule out foreign body which was negative. The RN copiously irrigated the wounds prior to laceration repair however I also thoroughly explored and irrigated the wounds after obtaining adequate analgesia using 2% lidocaine with epinephrine. The L-shaped laceration on the anterior aspect of her forearm was repaired with a single subcutaneous buried suture using 3-0 Polysorb and 4 interrupted sutures using 4-0 Ethilon. The remainder of her lacerations were repaired with simple interrupted sutures using 4-0 Ethilon as described in my procedure note. A bulky gauze pressure dressing was applied to the wounds. Due to the high risk of contamination I am placing the patient on prophylactic antibiotics. Due to her allergy to amoxicillin I will use a combination of doxycycline 100 mg twice a day 5 days and clindamycin 300 mg 3 times a day 5 days. Her tetanus was updated. She received a dose of ibuprofen 600 mg by mouth in the clinic for pain. Patient is to return in 3 days for a wound check and the plan is for her to have the sutures removed in 14 days pending location. Wound care , anticipatory guidance, and warning symptoms were all reviewed with the patient. She verbalizes understanding and agrees with plan of care. - Differential Dx/Diagnosis Differential Diagnosis/HQI/PQRI: Laceration, Puncture, Rabies Exposure, Other - Foreign body Provider Diagnosis: Dog bite of left arm, Puncture wound of arm, left, multiple sites, Laceration of left upper arm Discharge - Sign-Out/Discharge Documenting (check all that apply): Patient Departure All imaging exams completed and their final reports reviewed: Yes - Discharge Plan Condition: Stable Disposition: HOME Prescriptions: Clindamycin HCl 300 mg PO TID #15 capsule Doxycycline Hyclate 100 mg PO BID #10 tablet Patient Education Materials: Animal Bite (ED), Care For Your Stitches (ED), Laceration (ED), Tdap and Td Vaccines for Adults (ED) Referrals: Sola Mendoza NURSING HOME ASSISTANT ADMINISTRATOR [Primary Care Provider] - Additional Instructions: The x-ray of your arm performed in the clinic today showed no evidence of a foreign body. Your wounds were thoroughly irrigated and some of them were repaired using both absorbable and non-absorbable sutures. The absorbable sutures will slowly dissolve over the next several weeks. The non-absorbable sutures will need to be removed in 10 days. Take doxycycline 100 mg twice a day for 5 days and clindamycin 300 mg three times a day for 5 days to prevent infection. Return here in 3 days for a wound check. Take acetaminophen (Tylenol) or ibuprofen (Advil, Motrin) according to directions as needed for pain. We updated your tetanus today in the clinic. Be sure to notify your primary care provider so that they can update their records. Watch for signs of infection including fever greater than 100.5 F, redness that spreads, swelling of the arm, hands, or fingers, severe pain not managed with pain medication, or any worsening of symptoms. Seek immediate medical attention in the emergency room should any of these occur. - Billing Disposition and Condition Condition: STABLE Disposition: Home - Attestation Statements Provider Attestation: Per institutional requirements, I have reviewed the chart, however, I was not consulted specifically or made aware of this patient by the midlevel provider. I did not personally evaluate, interact with , or disposition this patient.
[2019-01-29] MEDS ORDERED: Lidocaine 2% W/EPI 1:100,000* 20 ML MDV INJ ONE (11:13)
[2019-01-29] MEDS ORDERED: Ibuprofen TAB* 600 MG PO ONE (12:32)
== END 2019-01-29 12:41 | disposition home or self-care (01) ==
LOC: UCCORT 10:09
DX: S41.112A Laceration without foreign body of left upper arm, initial encounter (principal); S41.152A Open bite of left upper arm, initial encounter; S41.132A Puncture wound without foreign body of left upper arm, initial encounter; Z88.0 Allergy status to penicillin; Z91.011 Allergy to milk products; W54.0XXA Bitten by dog, initial encounter; Y92.9 Unspecified place or not applicable
CPT/HCPCS: 12002; 90471; 90715; 99212; A9270-GY; G0463

== ENCOUNTER 2019-02-01 10:09 | Emergency (ER) | payer BC ==
[2019-02-01 10:15] VITALS: BP 133/69
--- NOTE | 2019-02-01 10:17 | UC ---
HPI Wound/Suture Re-check - HPI Summary HPI Summary: 48 year old female presents for wound check of lacerations to her left forearm that she sustained from a dog bite on 01/29/2019. She was evaluated and treated by myself on that date (see note). States lacerations are healing well, no signs of infection, no pain, denies fever or chills. States she is taking the doxycycline as directed but stopped taking the clindamycin as it was causing vomiting. - History Of Current Complaint Chief Complaint: UCGeneralIllness Stated Complaint: RECHECK SUTURES Time Seen by Provider: 02/01/19 10:14 Hx Obtained From: Patient Hx Last Menstrual Period: 01/07 Pain Intensity: 0 - Allergies/Home Medications Allergies/Adverse Reactions: Allergies Allergy/AdvReac Type Severity Reaction Status Date / Time amoxicillin Allergy Hives Verified 02/01/19 10:16 lactose AdvReac Vomiting Verified 02/01/19 10:16 PMH/Surg Hx/FS Hx/Imm Hx Previously Healthy: Yes - Denies significant PMH Other History Of: Negative For: HIV, Hepatitis B, Hepatitis C, Anticoagulant Therapy - Surgical History Surgical History: Yes Surgery Procedure, Year, and Place: IVF to extract egg 2009 - Family History Known Family History: Positive: Cardiac Disease - Social History Occupation: Employed Full-time Lives: Alone Alcohol Use: Occasionally Substance Use Type: None Smoking Status (MU): Never Smoked Tobacco Have You Smoked in the Last Year: No - Immunization History Most Recent Influenza Vaccination: none Review of Systems All Other Systems Reviewed And Are Negative: Yes Constitutional: Negative: Fever, Chills Skin: Positive: Bruising, Other - See HPI Respiratory: Positive: Negative Cardiovascular: Positive: Negative Gastrointestinal: Positive: Negative Genitourinary: Positive: Negative Musculoskeletal: Positive: Negative Neurological: Positive: Negative Is Patient Immunocompromised?: No Physical Exam - Summary Physical Exam Summary: GENERAL APPEARANCE: Well developed, well nourished, alert and cooperative, and appears to be in no acute distress. CARDIAC: Normal S1 and S2. No S3, S4 or murmurs. Rhythm is regular. There is no peripheral edema, cyanosis or pallor. Extremities are warm and well perfused. Capillary refill is less than 2 seconds. Peripheral pulses intact. LUNGS: Clear to auscultation without rales, rhonchi, wheezing or diminished breath sounds. ABDOMEN: Positive bowel sounds. Soft, nondistended, nontender. No guarding or rebound. No masses or hepatosplenomegally. MUSKULOSKELETAL: ROM intact to all extremities. No joint erythema or tenderness. Normal muscular development. Normal gait. SKIN: Multiple healing lacerations to the left forearm with intact sutures. There continues to be some ecchymosis. No erythema, edema, increased warmth or purulent drainage. Triage Information Reviewed: Yes Vital Signs: Initial Vital Signs Temp 98 F 02/01/19 10:12 Pulse 70 02/01/19 10:12 Resp 16 02/01/19 10:12 BP 133/69 02/01/19 10:12 Pulse Ox 100 02/01/19 10:12 Vital Signs Reviewed: Yes Course/Dx - Course Course Of Treatment: 48 year old female presents for wound check of lacerations to her left forearm that she sustained from a dog bite on 01/29/2019. She was evaluated and treated by myself on that date (see note). States lacerations are healing well, no signs of infection, no pain, denies fever or chills. States she is taking the doxycycline as directed but stopped taking the clindamycin as it was causing vomiting. Afebrile. VSS. Exam reveals multiple well healing lacerations of the left forearm with intact sutures. Recommend continuing wound care as directed. She is to continue with the doxycycline but I have instructed her to stop the clindamycin since there is no evidence of infection. She is to return February 13 for suture removal. Anticipatory guidance and warning symptoms were reviewed with the patient. Verbalizes understanding and agrees with POC. - Differential Dx - Laceration/Wound Differential Diagnoses: Cellulitis, Dehiscence, Healing Wound, Hematoma - Diagnosis Provider Diagnosis: Dog bite, Puncture wound of left forearm, Encounter for wound re-check Discharge - Sign-Out/Discharge Documenting (check all that apply): Patient Departure All imaging exams completed and their final reports reviewed: No Studies - Discharge Plan Condition: Stable Disposition: HOME Patient Education Materials: Care For Your Stitches (ED) Referrals: Sola Mendoza NP [Primary Care Provider] - Additional Instructions: Your lacerations are healing well, there is no signs of infection. Continue taking the doxycycline as directed. You may stop the clindamycin since you are not tolerating it well. Continue with the wound care are previously discussed. Continue to monitor for signs of infection and seek immediate medical attention at the first signs. Return February 13 for suture removal. I will be in [facility] from 8am-6pm that day but you can go to the clinic that is most convenient for you. - Billing Disposition and Condition Condition: STABLE Disposition: Home
== END 2019-02-01 10:36 | disposition home or self-care (01) ==
LOC: UCEAST 10:09
DX: S51.832D Puncture wound without foreign body of left forearm, subsequent encounter (principal); Z88.0 Allergy status to penicillin; Z91.011 Allergy to milk products; W54.0XXD Bitten by dog, subsequent encounter
CPT/HCPCS: 99212; G0463

== ENCOUNTER 2019-02-10 09:28 | Emergency (ER) | payer BC ==
[2019-02-10 09:56] VITALS: BP 143/87
--- NOTE | 2019-02-10 10:23 | UC ---
Skin Complaint HPI - HPI Summary HPI Summary: Pt presents for suture removal. Sutures were placed here on 01/29/19. - History of Current Complaint Chief Complaint: UCSkin Time Seen by Provider: 02/10/19 10:00 Stated Complaint: STITCH REMOVAL-DONE HERE Hx Obtained From: Patient Hx Last Menstrual Period: 02/04/19 ?: No Onset/Duration: Sudden Onset, Resolved Skin Exposure Onset/Duration: Days Ago Timing: Constant Onset Severity: Moderate Current Severity: None Pain Intensity: 0 Pain Scale Used: 0-10 Numeric Location: Other - left forearm Character: Painful Aggravating Factor(s): Other - movement Associated Signs & Symptoms: Positive: Tenderness Related History: Other: - puncture wound, dog bite - Allergy/Home Medications Allergies/Adverse Reactions: Allergies Allergy/AdvReac Type Severity Reaction Status Date / Time amoxicillin Allergy Hives Verified 02/10/19 09:50 lactose AdvReac Vomiting Verified 02/10/19 09:50 PMH/Surg Hx/FS Hx/Imm Hx Previously Healthy: Yes Other History Of: Negative For: HIV, Hepatitis B, Hepatitis C, Anticoagulant Therapy - Surgical History Surgical History: Yes Surgery Procedure, Year, and Place: IVF to extract egg 2009 - Family History Known Family History: Positive: Cardiac Disease - Social History Occupation: Employed Full-time Lives: With Family Alcohol Use: Occasionally Substance Use Type: None Smoking Status (MU): Never Smoked Tobacco Have You Smoked in the Last Year: No - Immunization History Most Recent Influenza Vaccination: none Vaccination Up to Date: Yes Review of Systems All Other Systems Reviewed And Are Negative: Yes Constitutional: Positive: Negative Skin: Positive: Other - sutures in left forearm, herew for removal Eyes: Positive: Negative ENT: Positive: Negative Respiratory: Positive: Negative Cardiovascular: Positive: Negative Gastrointestinal: Positive: Negative Genitourinary: Positive: Negative Motor: Positive: Negative Neurovascular: Positive: Negative Musculoskeletal: Positive: Myalgia - with movement Neurological: Positive: Negative Psychological: Positive: Negative Is Patient Immunocompromised?: No Physical Exam Triage Information Reviewed: Yes Appearance: Well-Appearing Vital Signs: Initial Vital Signs Temp 97.3 F 02/10/19 09:51 Pulse 83 02/10/19 09:51 Resp 16 02/10/19 09:51 BP 143/87 02/10/19 09:51 Pulse Ox 99 02/10/19 09:51 Vital Signs Reviewed: Yes Eye Exam: Normal ENT Exam: Normal Dental Exam: Normal Neck exam: Normal Respiratory Exam: Normal Respiratory: Positive: No respiratory distress Musculoskeletal Exam: Normal Musculoskeletal: Positive: Strength Intact, ROM Intact Neurological Exam: Normal Psychological Exam: Normal Skin Exam: Other - sutures intact, mild redness around sutures, no dranage, fever, red streaking. Pt removed two sutures prior to arrival. Course/Dx - Differential Diagnoses - Skin Complaint Differential Diagnoses: Abscess, Cellulitis, Other - suture removal - Diagnoses Provider Diagnosis: Visit for suture removal Discharge - Sign-Out/Discharge Documenting (check all that apply): Patient Departure All imaging exams completed and their final reports reviewed: No Studies - Discharge Plan Condition: Stable Disposition: HOME Patient Education Materials: Stitches Removal (ED) Referrals: Sola Mendoza [employer] FORMER MACHINE OPERATOR [Primary Care Provider] - 5 Days Additional Instructions: Please follow up with your PCP next week if you continue to arm pain or any other signs or symptoms related to your injury. - Billing Disposition and Condition Condition: STABLE Disposition: Home
== END 2019-02-10 10:12 | disposition home or self-care (01) ==
LOC: UCCORT 09:28
DX: S51.852D Open bite of left forearm, subsequent encounter (principal); Z88.0 Allergy status to penicillin; Z91.011 Allergy to milk products; W54.0XXD Bitten by dog, subsequent encounter

== ENCOUNTER 2019-05-02 09:17 | Emergency (ER) | payer BC ==
[2019-05-02 10:15] VITALS: BP 131/80
--- NOTE | 2019-05-02 10:26 | UC ---
Throat Pain/Nasal Franky HPI - HPI Summary HPI Summary: sinus pain and pressure x 10 days pain is more on her left maxillary sinus , pain is 5 out of 10 no radiation , + post nasal drip , left ear pain / pressure nasal congestion , no fever, no chills , no cough nothing make is better or worse - History of Current Complaint Chief Complaint: UCRespiratory Stated Complaint: SINUS COMPLAINT Time Seen by Provider: 05/02/19 10:18 Hx Obtained From: Patient Hx Last Menstrual Period: 03/16/19 ?: No Onset/Duration: Gradual Onset, Lasting Days - 10, Still Present Severity: Moderate Pain Intensity: 0 Cough: None Associated Signs & Symptoms: Positive: Sinus Discomfort, Nasal Discharge. Negative: Dysphagia, FB Sensation, Drooling, Wheezing, Hoarseness, Fever, Vomiting, Rash - Allergies/Home Medications Allergies/Adverse Reactions: Allergies Allergy/AdvReac Type Severity Reaction Status Date / Time amoxicillin Allergy Hives Verified 02/10/19 09:50 lactose AdvReac Vomiting Verified 02/10/19 09:50 Home Medications: Home Medications Fluticasone NASAL SPRAY 50MCG* [Flonase NASAL SPRAY 50MCG*] 2 spray BOTH NARES DAILY 05/02/19 [History Confirmed 05/02/19] PMH/Surg Hx/FS Hx/Imm Hx Previously Healthy: Yes Other History Of: Negative For: HIV, Hepatitis B, Hepatitis C, Anticoagulant Therapy - Surgical History Surgical History: Yes Surgery Procedure, Year, and Place: IVF to extract egg 2009 - Family History Known Family History: Positive: Cardiac Disease - Social History Alcohol Use: Occasionally Substance Use Type: None Smoking Status (MU): Never Smoked Tobacco Have You Smoked in the Last Year: No - Immunization History Most Recent Influenza Vaccination: none Vaccination Up to Date: Yes Review of Systems All Other Systems Reviewed And Are Negative: Yes Constitutional: Positive: Negative Skin: Positive: Negative Eyes: Positive: Negative ENT: Positive: Ear Ache, Nasal Discharge, Sinus Congestion, Sinus Pain/ Tenderness Respiratory: Positive: Negative Is Patient Immunocompromised?: No Physical Exam Triage Information Reviewed: Yes Appearance: Well-Appearing, No Pain Distress, Well-Nourished Vital Signs: Initial Vital Signs Temp 97.8 F 05/02/19 10:10 Pulse 76 05/02/19 10:10 Resp 18 05/02/19 10:10 BP 131/80 05/02/19 10:10 Pulse Ox 98 05/02/19 10:10 Vital Signs Reviewed: Yes Eye Exam: Normal Eyes: Positive: Conjunctiva Clear ENT: Positive: Normal ENT inspection, Hearing grossly normal, Pharynx normal, Nasal congestion, Nasal drainage, TMs normal, Sinus tenderness. Negative: Pharyngeal erythema, TM bulging, TM dull, TM red Neck exam: Normal Neck: Positive: Supple, Nontender, No Lymphadenopathy Respiratory: Positive: Chest non-tender, Lungs clear, Normal breath sounds Cardiovascular: Positive: RRR, No Murmur, Pulses Normal Skin Exam: Normal Throat Pain/Nasal Course/Dx - Differential Dx/Diagnosis Provider Diagnosis: Sinusitis Discharge - Sign-Out/Discharge Documenting (check all that apply): Patient Departure All imaging exams completed and their final reports reviewed: No Studies - Discharge Plan Condition: Stable Disposition: HOME Prescriptions: Amoxicillin/Clavulanate TAB* [Augmentin TAB 875*] 875 mg PO BID #20 tab Patient Education Materials: Sinusitis (ED) Referrals: Sola Mendoza [employer] TRUCK DRIVER [Primary Care Provider] - If Needed - Billing Disposition and Condition Condition: STABLE Disposition: Home
== END 2019-05-02 10:27 | disposition home or self-care (01) ==
LOC: UCCORT 09:17
DX: J32.9 Chronic sinusitis, unspecified (principal)
CPT/HCPCS: 99212; G0463

== ENCOUNTER 2019-07-01 11:46 | Emergency (ER) | payer BC ==
[2019-07-01 12:13] VITALS: BP 145/87
--- NOTE | 2019-07-01 12:28 | UC ---
UC General HPI - HPI Summary HPI Summary: pt ran for a softball and felt a little discomfort. she then pivoted and ran for another ball when she got a sudden and much more severe pain in her L hamstring. pt states "I think I pulled my hamstring". she is c/o difficulty lifting that leg due to the pain. she is able to flex and extend at the knee. 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 - History of Current Complaint Chief Complaint: UCLowerExtremity Stated Complaint: LT LEG INJURY-SPORTS RELATED Time Seen by Provider: 07/01/19 12:04 Hx Obtained From: Patient Hx Last Menstrual Period: 03/16/19 Timing: Constant Pain Intensity: 5 Aggravating: movement - Allergy/Home Medications Allergies/Adverse Reactions: Allergies Allergy/AdvReac Type Severity Reaction Status Date / Time amoxicillin Allergy Hives Verified 07/01/19 12:13 lactose AdvReac Vomiting Verified 07/01/19 12:13 PMH/Surg Hx/FS Hx/Imm Hx - Additional Past Medical History Additional PMH: allergies Other History Of: Negative For: HIV, Hepatitis B, Hepatitis C, Anticoagulant Therapy - Surgical History Surgical History: Yes Surgery Procedure, Year, and Place: IVF to extract egg 2009 - Family History Known Family History: Positive: Cardiac Disease - Social History Alcohol Use: Occasionally Substance Use Type: None Smoking Status (MU): Never Smoked Tobacco Have You Smoked in the Last Year: No - Immunization History Most Recent Influenza Vaccination: none Vaccination Up to Date: Yes Review of Systems All Other Systems Reviewed And Are Negative: No Skin: Negative: Rash Musculoskeletal: Positive: Decreased ROM - LLE: unable to lift leg at level of hip due to the hamstring pain.. Negative: Arthralgia Neurological: Negative: Paresthesia, Numbness Physical Exam Triage Information Reviewed: Yes Appearance: Well-Appearing Vital Signs: Initial Vital Signs Temp 97.7 F 07/01/19 12:06 Pulse 91 07/01/19 12:06 Resp 18 07/01/19 12:06 BP 145/87 07/01/19 12:06 Pulse Ox 99 07/01/19 12:06 Vital Signs Reviewed: Yes Musculoskeletal: Positive: Other: - LLE: mild swelling to posterior thigh over upper-medial hamstring. same area is very tender. flexion and extension at hip limited by pain in the same area. pelvis is without instability but has L ischial tenderness. knee is non tenser and pt is able to fle and extend that; however, flexion is limited by pain. Calf, ankle and foot are non tender. lower leg has gross s/v functions. Neurological: Positive: Alert Diagnostics - Radiology No standard instances Radiology Interpretation Completed By: Radiologist - IMPRESSION: NO ACUTE OSSEOUS INJURY. IF SYMPTOMS PERSIST, RECOMMEND REPEAT IMAGING. Course/Dx - Course Course Of Treatment: 6" MERCEDES applied to L thigh by this pa. leg below has gross s/v/m function pre and post. - Differential Dx - Multi-Symptom Differential Diagnoses: Other - no concern for infection or compartment syndrom. no fx or dislocation on xray. will mercedes, cruthc and refer to orthopedics. - Diagnoses Provider Diagnosis: Hamstring injury Discharge - Sign-Out/Discharge Documenting (check all that apply): Patient Departure All imaging exams completed and their final reports reviewed: Yes - Discharge Plan Condition: Stable Disposition: HOME Prescriptions: Naproxen [Naprosyn 500 mg tab] 500 mg PO BID PRN #15 tablet PRN Reason: Spasms - Muscle Patient Education Materials: Hamstring Injury (ED) Referrals: Vincenzo Stinson MD [Medical Doctor] - As Soon As Possible - Billing Disposition and Condition Condition: STABLE Disposition: Home - Attestation Statements Provider Attestation: I was available for consult. This patient was seen by the MELVINA. The patient was not presented to, seen by, or examined by me. -Jose
== END 2019-07-01 13:01 | disposition home or self-care (01) ==
LOC: UCCORT 11:46
DX: S76.002A Unspecified injury of muscle, fascia and tendon of left hip, initial encounter (principal); X50.0XXA Overexertion from strenuous movement or load, initial encounter; Y93.64 Activity, baseball; Y92.9 Unspecified place or not applicable
CPT/HCPCS: 72170; 99213; G0463

== ENCOUNTER 2019-10-31 13:06 | Emergency (ER) | payer BC ==
[2019-10-31 13:30] VITALS: BP 121/80
--- NOTE | 2019-10-31 13:55 | UC ---
Complaint Female HPI - HPI Summary HPI Summary: 49-year-old female presents with one-week history of urinary frequency. Reports she has had some intermittent low grade fever with a max temperature of 100.0 F. States over the last 2 days she has developed some left sided flank pain and this morning she noticed that her urine was a dark "clara" color. States pain is a constant dull ache that will wax and wane in intensity. Reports some occasional nausea. No history of kidney stones. Last menstrual period was approximately one half weeks ago. Denies chest pain, shortness of breath, cough, abdominal pain, vomiting, diarrhea, vaginal discharge, or abnormal vaginal bleeding. - History Of Current Complaint Chief Complaint: UCGU Stated Complaint: BURNING WHEN URINATING Time Seen by Provider: 10/31/19 13:16 Hx Obtained From: Patient Hx Last Menstrual Period: 03/16/19 Pain Intensity: 8 - Allergies/Home Medications Allergies/Adverse Reactions: Allergies Allergy/AdvReac Type Severity Reaction Status Date / Time amoxicillin Allergy Hives Verified 10/31/19 13:21 lactose AdvReac Vomiting Verified 10/31/19 13:21 PMH/Surg Hx/FS Hx/Imm Hx Previously Healthy: Yes - Denies significant PMH Other History Of: Negative For: HIV, Hepatitis B, Hepatitis C, Anticoagulant Therapy - Surgical History Surgical History: Yes Surgery Procedure, Year, and Place: IVF to extract egg 2009 - Family History Known Family History: Positive: Cardiac Disease - Social History Occupation: Employed Full-time Lives: Alone Alcohol Use: Occasionally Substance Use Type: None Smoking Status (MU): Never Smoked Tobacco Have You Smoked in the Last Year: No - Immunization History Most Recent Influenza Vaccination: none Vaccination Up to Date: Yes Review of Systems All Other Systems Reviewed And Are Negative: Yes Constitutional: Positive: Fever Skin: Negative: Rash Respiratory: Negative: Shortness Of Breath, Cough Cardiovascular: Negative: Chest Pain Gastrointestinal: Positive: Nausea. Negative: Abdominal Pain, Vomiting, Diarrhea Genitourinary: Positive: Hematuria, Frequency. Negative: Dysuria, Urgency, Vaginal/Penile Discharge, Abnormal Bleeding Musculoskeletal: Positive: Negative Neurological: Positive: Negative Is Patient Immunocompromised?: No Physical Exam - Summary Physical Exam Summary: GENERAL APPEARANCE: Alert and cooperative adult female who appears to be in no acute distress. CARDIAC: Normal S1 and S2. No S3, S4 or murmurs. Rhythm is regular. There is no peripheral edema, cyanosis or pallor. Extremities are warm and well perfused. Capillary refill is less than 2 seconds. Peripheral pulses intact. LUNGS: Clear to auscultation without rales, rhonchi, wheezing or diminished breath sounds. ABDOMEN: Positive bowel sounds. Soft, nondistended, nontender. No guarding or rebound. No masses or hepatosplenomegally. MUSKULOSKELETAL: ROM intact to all extremities. No joint erythema or tenderness. Normal muscular development. Normal gait. BACK: No midline spinal deformity or tenderness. Soft tissue left-sided lower thoracic/upper lumbar paraspinous tenderness without spasm. SKIN: Skin normal color, texture and turgor with no lesions or eruptions. Triage Information Reviewed: Yes Vital Signs: Initial Vital Signs Temp 98.2 F 10/31/19 13:23 Pulse 80 10/31/19 13:23 Resp 18 10/31/19 13:23 BP 121/80 10/31/19 13:23 Pulse Ox 99 10/31/19 13:23 Vital Signs Reviewed: Yes Diagnostics - Radiology No standard instances Radiology Interpretation Completed By: Radiologist Summary of Radiographic Findings: Order Information: CT ABD/PEL W/O. INDICATION : LEFT flank pain. Hematuria. Assess for nephrolithiasis. COMPARISON: No relevant prior exams available on the [facility] for comparison. TECHNIQUE: Multidetector CT images were obtained from the lung bases to the ischial tuberosities without contrast. Assessment of the visceral limited without IV or oral contrast. Multiplanar reformation. REPORT: VISUALIZED INFERIOR THORAX: Unremarkable visualized inferior thorax. LIVER / GALLBLADDER / PANCREAS / SPLEEN : Negative for CT abnormality of the unenhanced liver, gallbladder, pancreas, spleen. ALIMENTARY TRACT: The stomach is distended with liquid and solid foodstuff. No CT abnormality of the small bowel loops or retrocecal appendix. Mild colonic diverticulosis without acute inflammatory change. Negative for ascites, free air, hernias. MESENTERIC: Unremarkable. ADRENAL / GENITOURINARY : Normal adrenal glands. Negative for nephrolithiasis, hydronephrosis, or conspicuous focal renal lesions within limits of noncontrast CT. Unremarkable nondilated ureters. Phleboliths noted adjacent to the distal ureters. Unremarkable partially distended urinary bladder. Unremarkable anteverted uterus. Asymmetric enlargement of the LEFT ovary which measures up to 4.7 x 2.6 x 3.9 cm compared with 2.1 x 1.9 x 1.4 cm for the RIGHT ovary. RETROPERITONEAL : Negative for lymphadenopathy. VASCULAR: Normal diameter abdominal aorta and iliac arteries. Physiologic distention of the IVC. BONES: Negative for suspicious osseous lesions. Advanced L4-L5 degenerative spondylosis. SOFT TISSUE: Unremarkable. IMPRESSION: #. Negative for urolithiasis or hydronephrosis. #. Consider pelvic ultrasound to further assess asymmetric enlargement of the LEFT ovary. #. Negative for ascites. Complaint Female Dx - Course Course Of Treatment: 49-year-old female presents with one-week history of urinary frequency. Reports she has had some intermittent low grade fever with a max temperature of 100.0 F. States over the last 2 days she has developed some left sided flank pain and this morning she noticed that her urine was a dark "clara" color. States pain is a constant dull ache that will wax and wane in intensity. Reports some occasional nausea. No history of kidney stones. Last menstrual period was approximately one half weeks ago. Denies chest pain, shortness of breath, cough, abdominal pain, vomiting, diarrhea, vaginal discharge, or abnormal vaginal bleeding. Afebrile. Vital signs stable. Patient's exam was overall unremarkable except for some soft tissue left-sided lower thoracic/ upper lumbar paraspinous tenderness without spasm. [id number] urinalysis showed 3+ blood but otherwise normal. A urine culture was sent and is pending. Reviewed results with the patient. Discussed with the patient that with her reported history of fever, flank pain, and hematuria could not fully exclude the possibility of a kidney stone therefore a noncontrasted CT of the abdomen and pelvis were obtained. CT showed no evidence of renal calculi however there was an incidental finding of an asymmetrical enlarged left ovary which I feel is unrelated to her current symptoms. Discussed these findings with the patient. Discussed with the patient that I suspect with the reproducible pain that it may be musculoskeletal in origin recommending [id number] NSAIDs and heat therapy. We also discussed empiric treatment for a UTI versus watchful waiting pending the urine culture and patient has elected to start empiric treatment at this time. She was given a prescription for Macrobid 100 mg twice a day 5 days. She is to follow-up with her primary care provider or [facility] TRANSLATOR for further evaluation of the ovary finding on CT and they have suggested that she also follow up with her primary care provider regarding the hematuria. Anticipatory guidance and warning symptoms were reviewed with the patient. Verbalizes understanding and agrees with plan of care. - Differential Dx/Diagnosis Differential Diagnosis/HQI/PQRI: Renal Colic, Ureteral Stone, Urinary Tract Infection, Other - back strain Provider Diagnosis: Flank pain, acute, Urinary frequency, Hematuria Discharge ED - Sign-Out/Discharge Documenting (check all that apply): Patient Departure All imaging exams completed and their final reports reviewed: Yes - Discharge Plan Condition: Stable Disposition: HOME Prescriptions: Nitrofurantoin Monohyd/M-Cryst [Macrobid 100 mg Capsule] 100 mg PO BID 5 Days # 10 cap Patient Education Materials: Hematuria (ED), Flank Pain (ED) Referrals: Sola Mendoza NP [Primary Care Provider] - 3 Days Gelacio Chung MD [Medical Doctor] - Additional Instructions: Your urine test in the clinic today showed evidence of blood but no evidence of a urinary tract infection. Based on your symptoms we will start you on an antibiotic to treat for a possible infection. We have sent the urine culture today to see if any bacteria grow out and make sure the antibiotic you were prescribed is appropriate to treat if there is an indication of an infection. It will take up to 48-72 hours to get these results. We will contact you if there is any change in your treatment plan. Start Macrobid 1 tablet twice daily for 5 days. Drink plenty of fluids. To help prevent urinary tract infections: 1) Be sure to wipe from front to back. 2) Urinate immediately after any sexual intercourse. 3) Avoid taking bubble baths. The CT scan performed in the clinic today showed no evidence of kidney stone. It was noted that the left ovary is asymmetric and enlarged and should be further evaluated by ultrasound however I think this finding is not emergent nor related to your current symptoms therefore recommend that you follow up with your primary care provider or MEDICAL TRANSLATOR. Because your pain was reproducible I suspect that it may be musculoskeletal in origin. I would recommend using an [id number] anti-inflammatory such as ibuprofen (Advil, Motrin) or naproxen (Aleve) according to directions for the pain. You may also want to try using a heating pad to the area for 15-20 minutes at least 4 times a day to help with the pain and relax the muscles. Follow up with your primary care provider in 3-5 days for further evaluation of the hematuria and for the CT finding regarding your ovary. Seek immediate medical attention in the emergency room if you develop fever greater than 100.5 F, have severe abdominal pain, persistent vomiting, or any worsening of symptoms. - Billing Disposition and Condition Condition: STABLE Disposition: Home
== END 2019-10-31 16:10 | disposition home or self-care (01) ==
LOC: UCEAST 13:06
DX: R35.0 Frequency of micturition (principal); R31.9 Hematuria, unspecified; R10.9 Unspecified abdominal pain; R11.0 Nausea; Z88.0 Allergy status to penicillin; Z91.011 Allergy to milk products
CPT/HCPCS: 74176; 81003; 87086; 99212; G0463

== ENCOUNTER 2019-11-17 10:22 | Emergency (ER) | payer BC ==
[2019-11-17 12:27] VITALS: BP 136/74
--- NOTE | 2019-11-17 12:59 | UC ---
UC General HPI - HPI Summary HPI Summary: 49-year-old woman comes in with a chief complaint of fatigue and body aches. Patient's getting her thyroid checked at her primary care physician's office. She had a tick bite with a rash in September 2019. She wonders if she has Lyme disease. No fevers measured. - History of Current Complaint Chief Complaint: UCGeneralIllness Stated Complaint: TIRED LOW FEVER TICK BITE (APPROX 1 MONTH AGO) Time Seen by Provider: 11/17/19 12:37 Hx Last Menstrual Period: 10/27/19 Pain Intensity: 3 - Allergy/Home Medications Allergies/Adverse Reactions: Allergies Allergy/AdvReac Type Severity Reaction Status Date / Time amoxicillin Allergy Hives Verified 11/17/19 12:23 lactose AdvReac Vomiting Verified 11/17/19 12:23 Home Medications: Home Medications Naproxen Sodium [Aleve] 220 mg PO Q12H PRN 11/17/19 [History Confirmed 11/17/19] PMH/Surg Hx/FS Hx/Imm Hx Previously Healthy: Yes Other History Of: Negative For: HIV, Hepatitis B, Hepatitis C, Anticoagulant Therapy - Surgical History Surgical History: Yes Surgery Procedure, Year, and Place: IVF to extract egg 2009 - Family History Known Family History: Positive: Cardiac Disease - Social History Alcohol Use: Occasionally Substance Use Type: None Smoking Status (MU): Never Smoked Tobacco Have You Smoked in the Last Year: No - Immunization History Most Recent Influenza Vaccination: none Most Recent Tetanus Shot: 01/29/19 Vaccination Up to Date: Yes Review of Systems All Other Systems Reviewed And Are Negative: Yes Constitutional: Positive: Fatigue, Other - SEE HPI Skin: Positive: Negative Eyes: Positive: Negative ENT: Positive: Negative Respiratory: Positive: Negative Cardiovascular: Positive: Negative Gastrointestinal: Positive: Negative Motor: Positive: Negative Neurovascular: Positive: Negative Musculoskeletal: Positive: Other: - SEE HPI Neurological: Positive: Negative Psychological: Positive: Negative Is Patient Immunocompromised?: No Physical Exam Triage Information Reviewed: Yes Appearance: Well-Appearing, No Pain Distress, Well-Nourished Vital Signs: Initial Vital Signs Temp 98.8 F 11/17/19 12:20 Pulse 88 11/17/19 12:20 Resp 18 11/17/19 12:20 BP 136/74 11/17/19 12:20 Pulse Ox 98 11/17/19 12:20 Vital Signs Reviewed: Yes Eye Exam: Normal Eyes: Positive: Conjunctiva Clear ENT: Positive: Pharynx normal, TMs normal Neck: Positive: Supple Respiratory: Positive: Lungs clear, Normal breath sounds, No respiratory distress Cardiovascular: Positive: RRR Musculoskeletal: Positive: Strength Intact, ROM Intact Neurological: Positive: Alert, Muscle Tone Normal Psychological: Positive: Normal Response To Family, Age Appropriate Behavior Skin Exam: Normal Course/Dx - Course Course Of Treatment: CRP CBC CMP and Lyme are pending. If the patient's Lyme is positive we will need to facilitate treatment for Lyme disease. Patient reports she is undergoing thyroid evaluations her primary care physician at this time therefore I did not check a TSH at this time. Patient is to follow-up with her primary care physician. Get reevaluated sooner if worse or any questions or concerns. - Diagnoses Provider Diagnosis: Fatigue Discharge ED - Sign-Out/Discharge Documenting (check all that apply): Patient Departure All imaging exams completed and their final reports reviewed: No Studies - Discharge Plan Condition: Stable Disposition: HOME Patient Education Materials: Fatigue (ED) Referrals: Sola Mendoza NP [Primary Care Provider] - Additional Instructions: FOLLOW UP WITH YOUR DOCTOR. CRP, CBC, CMP AND LYME LAB RESULTS ARE PENDING. GET REEVALUATED SOONER IF NOT IMPROVING OR WORSE OR ANY QUESTIONS OR CONCERNS. - Billing Disposition and Condition Condition: STABLE Disposition: Home
[2019-11-17 19:36] LABS: ABS Basophils 0.1 10^3/ul (0-0.2); ABS Eosinophils 0.1 10^3/ul (0-0.6); ABS Lymphocytes 2.1 10^3/ul (1.0-4.8); ABS Monocytes 0.6 10^3/ul (0-0.8); ABS Neutrophils 4.7 10^3/ul (1.5-7.7); Eosinophil % 1.5 %; Hematocrit 37 % (35-47); Hemoglobin 12.8 g/dL (12.0-16.0); Lymphocyte % 28.2 %; Mean Corpuscular HGB Conc 35 g/dL (31-36); Mean Corpuscular Hemoglobin 31 pg (27-31); Mean Corpuscular Volume 91 fL (80-97); Mean Platelet Volume 8.9 fL (7.4-10.4); Platelet Count 264 10^3/uL (150-450); Red Blood Count 4.07 10^6 /uL (3.70-4.87); Red Cell Distribution Width 14 % (10-15); White Blood Count 7.5 10^3/uL (3.5-10.8)
[2019-11-17 19:45] LABS: Albumin 4.3 g/dL (3.2-5.2); Anion Gap 7 mmol/L (2-11); CO2 Carbon Dioxide 27 mmol/L (22-32); Calcium 9.5 mg/dL (8.6-10.3); Chloride 104 mmol/L (101-111); Potassium 3.9 mmol/L (3.5-5.0); Sodium 138 mmol/L (135-145)
[2019-11-17 19:51] LABS: ALT 17 U/L (7-52); AST 16 U/L (13-39); Albumin/Globulin Ratio 1.6 (1-3); Alkaline Phosphatase 82 U/L (34-104); BUN/Creatinine Ratio 20.9 (8-20); Blood Urea Nitrogen 18 mg/dL (6-24); C Reactive Protein < 1.00 mg/L (<8.01); EGFR African American 84.9 (>60); EGFR Non-African American 70.1 (>60); Globulin 2.7 g/dL (2-4); Glucose 94 mg/dL (70-100)
== END 2019-11-17 13:35 | disposition home or self-care (01) ==
LOC: UCCORT 10:22
DX: R53.83 Other fatigue (principal); Z88.0 Allergy status to penicillin; Z91.011 Allergy to milk products
CPT/HCPCS: 36415; 80053; 85025; 86140; 86618; 99211; G0463